=== PATIENT | female | born 1995 | race Caucasian/White ===

== ENCOUNTER 2020-04-05 07:41 | Emergency (ER) | payer BC, OTHER ==
[~2020-04-05] VITALS: Ht 170 cm; Wt 70.3 kg
--- NOTE | 2020-04-05 08:55 | ED Chest Pain ---
General Chief Complaint: Chest Pain Stated Complaint: SOB Nursing Triage Note: pt presents to ed with complaitns of cp and soa since 02/23. pt reports she was seen at [facility] on 02/29/20 and told she had inflammation around her heart. pt was prescribed steriods and ibuprofen. pt reports minimal relief. pt states her pain is in her l chest and radiates to her l arm and neck. pt reports increased pain with activity. Nursing Sepsis Screen: No Definite Risk Source: patient Exam Limitations: no limitations History of Present Illness Date Seen by Provider: Apr 05, 2020 Time Seen by Provider: 08:25 Initial Comments Patient presents ER by private conveyance with chief complaint of a week and a half left upper chest pain that is worsening today radiating into her left neck and down her left arm with some thumb numbness and tingling. She was diagnosed with pericarditis/myocarditis at [facility] and started on ibuprofen. She took her last dose at 0330. She does not feel like it is helping. She rates her pain as a 7 or 8 out of 10 at this time. Sometimes it shoots up to a 10 out of 10. No other significant medical history. She follows with [facility] her primary care. She does not take any medicines routinely or control. She is having some shortness of air with her chest pain today which is new. No cough fever or chills. She denies being tested for Covid. Allergies and Home Medications Allergies Coded Allergies: No Known Drug Allergies (Unverified , 04/05/20) Home Medications Hydrocodone/Acetaminophen 1 Each Tablet, 1 TAB PO Q6H PRN for PAIN-MODERATE (5- 7) Prescribed by: NEREYDA SHEPPARD on 04/05/20 1045 Naproxen 500 Mg Tablet, 500 MG PO BID Prescribed by: NEREYDA SHEPPARD on 04/05/20 1044 Patient Home Medication List Home Medication List Reviewed: Yes Review of Systems Review of Systems Constitutional: No chills, No fever, No malaise EENTM: No Blurred Vision, No Double Vision Respiratory: See HPI; Denies Cough, Denies Orthopnea; Shortness of Air; Denies SOA With Exertion Cardiovascular: See HPI, Chest Pain (Reproducible by direct palpation of the left upper chest.); Denies Edema, Denies Irregular Heart Rate Gastrointestinal: Denies Abdomen Distended, Denies Abdominal Pain, Denies Nausea, Denies Poor Fluid Intake Genitourinary: Denies Burning, Denies Discharge Musculoskeletal: No back pain, No joint pain Skin: No pruritus, No rash Psychiatric/Neurological: Denies Headache, Denies Numbness All Other Systems Reviewed Negative Unless Noted: Yes Past Pilbhpd-Fkpbpi-Hrigfv Hx Patient Social History Alcohol Use: Rarely Uses Smoking Status: Never a Smoker Recent Infectious Disease Expo: No Recent Hopitalizations: No Seasonal Allergies Seasonal Allergies: No Past Medical History Surgeries: No Respiratory: No Cardiac: No Neurological: No Genitourinary: No Gastrointestinal: No Musculoskeletal: No Endocrine: No HEENT: No Cancer: No Psychosocial: No Integumentary: No Blood Disorders: No Physical Exam Vital Signs Vital Signs - First Documented 04/05/20 08:18 Temp 36.2 Pulse 90 Resp 18 B/P (MAP) 139/84 (102) Pulse Ox 100 O2 Delivery Room Air Capillary Refill : Less Than 3 Seconds Height, Weight, BMI Height: '" Weight: lbs. oz. kg; 24.00 BMI Method: General Appearance: WD/WN, Anxious, Mild Distress HEENT: PERRL/EOMI, Pharynx Normal, Moist Mucous Membranes Neck: Normal Inspection, Non Tender, Supple Respiratory: No Chest Non Tender; Lungs Clear, Normal Breath Sounds, No Accessory Muscle Use, No Respiratory Distress Cardiovascular: Regular Rate, Rhythm, No Edema, Normal Peripheral Pulses Gastrointestinal: Normal Bowel Sounds, Non Tender, Soft Extremity: Normal Capillary Refill, Normal Inspection, No Pedal Edema Neurologic/Psychiatric: Alert, Oriented x3 Skin: Normal Color, Warm/Dry Progress/Results/Core Measures Results/Orders Lab Results Laboratory Tests Test 04/05/20 08:36 Range/Units White Blood Count 7.5 4.3-11.0 10^3/uL Red Blood Count 4.53 3.80-5.11 10^6/uL Hemoglobin 13.2 11.5-16.0 g/dL Hematocrit 40 35-52 % Mean Corpuscular Volume 87 80-99 fL Mean Corpuscular Hemoglobin 29 25-34 pg Mean Corpuscular Hemoglobin Concent 33 32-36 g/dL Red Cell Distribution Width 12.1 10.0-14.5 % Platelet Count 173 130-400 10^3/uL Mean Platelet Volume 11.3 9.0-12.2 fL Immature Granulocyte % (Auto) 1 % Neutrophils (%) (Auto) 65 42-75 % Lymphocytes (%) (Auto) 26 12-44 % Monocytes (%) (Auto) 7 0-12 % Eosinophils (%) (Auto) 1 0-10 % Basophils (%) (Auto) 1 0-10 % Neutrophils # (Auto) 4.9 1.8-7.8 10^3/uL Lymphocytes # (Auto) 2.0 1.0-4.0 10^3/uL Monocytes # (Auto) 0.5 0.0-1.0 10^3/uL Eosinophils # (Auto) 0.1 0.0-0.3 10^3/uL Basophils # (Auto) 0.0 0.0-0.1 10^3/uL Immature Granulocyte # (Auto) 0.0 0.0-0.1 10^3/uL Prothrombin Time 12.9 12.2-14.7 SEC INR Comment 0.9 0.8-1.4 Activated Partial Thromboplast Time 27 24-35 SEC D-Dimer 0.37 0.00-0.49 UG/ML Sodium Level 138 135-145 MMOL/L Potassium Level 4.5 3.6-5.0 MMOL/L Chloride Level 108 H 98-107 MMOL/L Carbon Dioxide Level 19 L 21-32 MMOL/L Anion Gap 11 5-14 MMOL/L Blood Urea Nitrogen 12 7-18 MG/DL Creatinine 0.70 0.60-1.30 MG/DL Estimat Glomerular Filtration Rate > 60 BUN/Creatinine Ratio 17 Glucose Level 89 70-105 MG/DL Calcium Level 8.9 8.5-10.1 MG/DL Corrected Calcium 8.7 8.5-10.1 MG/DL Magnesium Level 2.1 1.6-2.4 MG/DL Total Bilirubin 0.2 0.1-1.0 MG/DL Aspartate Amino Transf (AST/SGOT) 16 5-34 U/L Alanine Aminotransferase (ALT/SGPT) 12 0-55 U/L Alkaline Phosphatase 48 40-136 U/L Myoglobin 16.0 10.0-92.0 NG/ML Troponin I < 0.028 <0.028 NG/ML Total Protein 7.6 6.4-8.2 GM/DL Albumin 4.3 3.2-4.5 GM/DL Lipase 25 8-78 U/L Serum Test, Qualitative NEGATIVE NEGATIVE Coronavirus 2019 (EUN) Negative Negative My Orders Orders - VALARIE,NEREYDA J Cbc With Automated Diff (04/05/20 08:50) Magnesium (04/05/20 08:50) Chest 1 View, Ap/Pa Only (04/05/20 08:50) Ekg Tracing (04/05/20 08:50) Comprehensive Metabolic Panel (04/05/20 08:50) Myoglobin Serum (04/05/20 08:50) Protime With Inr (04/05/20 08:50) Partial Thromboplastin Time (04/05/20 08:50) O2 (04/05/20 08:50) Monitor-Rhythm Ecg Trace Only (04/05/20 08:50) Ed Iv/Invasive Line Start (04/05/20 08:50) Lipase (04/05/20 08:50) Fibrin Degradation Products (04/05/20 08:50) Troponin I (04/05/20 08:50) Aspirin Chewable Tablet (Baby Aspirin Ch (04/05/20 09:00) Ketorolac Injection (Toradol Injection) (04/05/20 09:00) Ed Iv/Invasive Line Start (04/05/20 08:50) Lactated Ringers (Lr 1000 Ml Iv Solution (04/05/20 09:00) Hcg,Qualitative Serum (04/05/20 08:50) Covid 19 Inhouse Test (04/05/20 09:45) Medications Given in ED Current Medications Medications Dose Ordered Sig/El Route Start Time Stop Time Status Last Admin Dose Admin Aspirin 324 mg ONCE ONCE PO 04/05/20 09:00 04/05/20 09:01 DC 04/05/20 09:04 324 MG Ketorolac Tromethamine 30 mg ONCE ONCE IVP 04/05/20 09:00 04/05/20 09:01 DC 04/05/20 09:04 30 MG Lactated Ringer's 1,000 ml @ 0 mls/hr Q0M ONCE IV 04/05/20 09:00 04/05/20 09:01 DC 04/05/20 09:04 0 MLS/HR Vital Signs/I&O 04/05/20 04/05/20 04/05/20 08:18 08:18 10:55 Temp 36.2 Pulse 90 92 Resp 18 20 B/P (MAP) 139/84 (102) 132/75 Pulse Ox 100 100 O2 Delivery Room Air 2 Blood Pressure Mean: 102 Progress Progress Note : Time: 10:33 Progress Note The patient derived significant pain relief from the Toradol. She is feeling better and ready to go. Her labs were reassuring. Suspect myocarditis/pericarditis. No evidence for tamponade, pulmonary embolism, pneumonia or bronchospasm. We will have her follow-up with primary care or cardiology within the next week and use naproxen since she is not getting good relief from the ibuprofen. Initial ECG Impression Date: Apr 05, 2020 Initial ECG Impression Time: 08:28 Initial ECG Rate: 99 Initial ECG Rhythm: Normal Sinus Initial ECG Intervals: Normal Initial ECG Impression: Normal Comment Normal sinus rhythm with a right bundle branch block and no clinically relevant ST elevation or depression. Diagnostic Imaging Diagonstic Imaging: Xray Plain Films/CT/US/NM/MRI: chest Comments NAME: LORRI CABRERA MED REC#: [id number] PT STATUS: REG ER : 1995 PHYSICIAN: NEREYDA SHEPPARD MD ADMIT DATE: 04/05/20/ER Draft Date of Exam:04/05/20 CHEST 1 VIEW, AP/PA ONLY Indication: Shortness of air and chest pain, radiating to left arm. Time of exam: 9:35 AM No prior studies are available for comparison. The heart size is normal. The pulmonary vascularity is unremarkable. The lungs are clear. No infiltrate, effusion or pneumothorax is detected. Impression: No acute cardiopulmonary process is detected. Dictated on workstation # [id number] Dict: 04/05/20 0936 Trans: 04/05/20 0938 [facility] [id number] Interpreted by: AGUSTO VILLALBA MD Electronically signed by: Reviewed: Reviewed by Me Departure Impression Primary Impression: Myocarditis Qualified Codes: I40.9 - Acute myocarditis, unspecified Disposition: 01 HOME, SELF-CARE Condition: Stable Departure-Patient Inst. Decision time for Depature: 10:42 Referrals: JACEK BENOIT MD FACP FAC CCDS NO,LOCAL PHYSICIAN (PCP) Primary Care Physician Patient Instructions: Myocarditis Add. Discharge Instructions: Naproxen 500 mg twice a day on a schedule to reduce inflammation and chest pain. Tylenol 1000 mg every 8 hours as necessary for breakthrough pain. Hydrocodone 1 tablet every 6 hours as necessary for severe breakthrough pain. Hydrocodone will cause constipation and drowsiness and should not be mixed with alcohol or driving. Plan to follow-up with the compliance field technician within the next week for reevaluation. Drink plenty of fluids. Take the next couple days off and return to work if you are not worsening by . Return to the ER if your symptoms are progressive despite medications. All discharge instructions reviewed with patient and/or family. Voiced understanding. Scripts Hydrocodone/Acetaminophen (Hydrocodone-Acetamin 5-325 mg) 1 Each Tablet 1 TAB PO Q6H PRN for PAIN-MODERATE (5-7), #10 TAB 0 Refills Prov: NEREYDA SHEPPARD 04/05/20 Naproxen (Naprosyn) 500 Mg Tablet 500 MG PO BID for 14 Days, #30 TAB 0 Refills Prov: NEREYDA SHEPPARD 04/05/20 Work/School Note: Work Release Form Date Seen in the Emergency Department: Apr 05, 2020 Return to Work: Apr 08, 2020 Restrictions: No Restrictions Copy Copies To 1: JACEK BENOIT MD FACP FAC [facility]S NEREYDA SHEPPARD Apr 05, 2020 08:55
[2020-04-05 08:57] LABS: BASOPHILS % (AUTO) 1 % (0-10); EOSINOPHILS # (AUTO) 0.1 10^3/uL (0.0-0.3); EOSINOPHILS % (AUTO) 1 % (0-10); HEMATOCRIT 40 % (35-52); HEMOGLOBIN 13.2 g/dL (11.5-16.0); LYMPHOCYTES % (AUTO) 26 % (12-44); MEAN CORPUSCULAR HEMOGLOBIN 29 pg (25-34); MEAN CORPUSCULAR HGB CONC 33 g/dL (32-36); MEAN CORPUSCULAR VOLUME 87 fL (80-99); MEAN PLATELET VOLUME 11.3 fL (9.0-12.2); MONOCYTES # (AUTO) 0.5 10^3/uL (0.0-1.0); MONOCYTES % (AUTO) 7 % (0-12); NEUTROPHILS # (AUTO) 4.9 10^3/uL (1.8-7.8); NEUTROPHILS % (AUTO) 65 % (42-75); PLATELET COUNT 173 10^3/uL (130-400); WHITE BLOOD COUNT 7.5 10^3/uL (4.3-11.0)
[2020-04-05] MEDS ORDERED: KETOROLAC 30 MG/ML VIAL IVP ONE (09:00)
[2020-04-05] MEDS ORDERED: ASPIRIN 81 MG CHEW (CHILDREN'S ASA) PO ONE (09:00)
[2020-04-05] MEDS ORDERED: LACTATED RINGERS 1,000 ML IV ONE (09:00)
[2020-04-05 09:05] LABS: ALBUMIN 4.3 GM/DL (3.2-4.5); INR 0.9 (0.8-1.4); PROTHROMBIN TIME PATIENT 12.9 SEC (12.2-14.7)
[2020-04-05 09:06] LABS: CHLORIDE 108 MMOL/L (98-107); POTASSIUM 4.5 MMOL/L (3.6-5.0); SODIUM 138 MMOL/L (135-145)
[2020-04-05 09:07] LABS: CALCIUM 8.9 MG/DL (8.5-10.1)
[2020-04-05 09:08] LABS: GLUCOSE 89 MG/DL (70-105); TOTAL PROTEIN 7.6 GM/DL (6.4-8.2)
[2020-04-05 09:09] LABS: CARBON DIOXIDE 19 MMOL/L (21-32)
[2020-04-05 09:10] LABS: BILIRUBIN,TOTAL 0.2 MG/DL (0.1-1.0)
[2020-04-05 09:11] LABS: ALKALINE PHOSPHATASE 48 U/L (40-136)
[2020-04-05 09:12] LABS: GFR ESTIMATED > 60
[2020-04-05 09:13] LABS: BUN/CREATININE RATIO 17
[2020-04-05 09:15] LABS: ALANINE AMINOTRANSFERASE 12 U/L (0-55); MAGNESIUM 2.1 MG/DL (1.6-2.4)
[2020-04-05 09:16] LABS: LIPASE 25 U/L (8-78)
--- NOTE | 2020-04-05 09:38 | Diagnostic Imaging Report ---
Indication: Shortness of air and chest pain, radiating to left arm. Time of exam: 9:35 AM No prior studies are available for comparison. The heart size is normal. The pulmonary vascularity is unremarkable. The lungs are clear. No infiltrate, effusion or pneumothorax is detected. Impression: No acute cardiopulmonary process is detected. Dictated by: Dictated on workstation # [id number]
[2020-04-05] MEDS ORDERED: ACHD5005 PO (10:44)
[2020-04-05] MEDS ORDERED: NAPR-1071 PO (10:44)
[2020-04-05 10:55] VITALS: BP 132/75
== END 2020-04-05 10:55 | disposition home or self-care (01) ==
LOC: ER 07:45
DX: I51.4 Myocarditis, unspecified (principal); F41.9 Anxiety disorder, unspecified; Z20.822 Contact with and (suspected) exposure to COVID-19
CPT/HCPCS: 71045; 80053; 83690; 83735; 83874; 84484; 84703; 85025; 85379; 85610; 85730; 93041; U0002; 36415; 87635; 93005

== ENCOUNTER → 2020-04-08 | Outpatient (CLI) | payer BC ==
[~2020-04-08] MED LIST: ACHD5005 PO; NAPR-1071 PO
== END ==
LOC: CARD 08:39
PROVIDERS: ATTEND Nurse Practitioner Family
DX: R07.9 Chest pain, unspecified (principal)
CPT/HCPCS: 93306